=== PATIENT | female | born 1985 | race Caucasian/White ===

== ENCOUNTER → 2016-11-03 | Outpatient (CLI) | payer MEDICAID ==
[~2016-11-03] MED LIST: NONE PER PT
== END | disposition home or self-care (01) ==
LOC: CFH 11:55
PROVIDERS: ATTEND Nurse Practitioner
DX: E04.2 Nontoxic multinodular goiter (principal)
CPT/HCPCS: 76536

== ENCOUNTER → 2016-12-30 | Outpatient (CLI) | payer MEDICAID ==
[~2016-12-30] MED LIST changes: +PHEN15CA PO; +TRAN650T3 PO
[2016-12-30 10:19] LABS: ASPARTATE AMINO TRANSFERASE 12 U/L (15-37); BLOOD UREA NITROGEN 11 mg/dL (7-18)
== END | disposition home or self-care (01) ==
LOC: STAR 09:23
PROVIDERS: ATTEND Urology
DX: Z01.818 Encounter for other preprocedural examination (principal); R94.31 Abnormal electrocardiogram [ECG] [EKG]; N20.0 Calculus of kidney
CPT/HCPCS: 36415; 80053; 81001; 85025; 85610; 85730; 87086; 93005

== ENCOUNTER 2017-01-11 05:39 | Day surgery (SDC) | payer MEDICAID ==
[2016-12-30 08:30] VITALS: BP 130/83
[~2017-01-11] VITALS: Ht 172.7 cm; Wt 95.0 kg
[2017-01-11 06:09] LABS: HCG UR OBC PASS
[2017-01-11] MEDS ORDERED: LACTATED RINGERS 1,000 ML IV SCH (06:10)
[2017-01-11 06:12] VITALS: BP 130/83
[2017-01-11] MEDS ORDERED: LIDOCAINE 1%, 2ML SQ PRN (06:30)
[2017-01-11] MEDS ORDERED: MIDAZOLAM 1 MG/ML, 2ML ONE (07:06)
[2017-01-11] MEDS ORDERED: FENTANYL PF 250 MCG/5ML ONE (07:06)
[2017-01-11] MEDS ORDERED: ONDANSETRON 2MG/ML, 2ML ONE (07:51)
[2017-01-11] MEDS ORDERED: PROPOFOL 10 MG/ML, 20ML ONE (07:51)
[2017-01-11] MEDS ORDERED: DEXAMETHASONE 4 MG/ML, 1ML ONE (07:51)
[2017-01-11] MEDS ORDERED: CEFAZOLIN 1,000 MG ONE (07:51)
[2017-01-11] MEDS ORDERED: OMNIPAQUE 350 MG/ML, 50 ML BOTTLE IV ONE (08:15)
[2017-01-11] MEDS ORDERED: MIDAZOLAM 1 MG/ML, 2ML IV PRN (08:30)
[2017-01-11] MEDS ORDERED: PROMETHAZINE 25 MG/ML, 1ML IV PRN (08:30)
[2017-01-11] MEDS ORDERED: EPHEDRINE 50 MG/ML, 1ML IVPush PRN (08:30)
[2017-01-11] MEDS ORDERED: ONDANSETRON 2MG/ML, 2ML IVPush PRN (08:30)
[2017-01-11] MEDS ORDERED: hydrALAzine 20 MG/ML, 1ML IV PRN (08:30)
[2017-01-11] MEDS ORDERED: ACETAMINOPHEN 325 MG TABLET PO PRN (08:30)
[2017-01-11] MEDS ORDERED: METOPROLOL 1 MG/ML, 5ML IV PRN (08:30)
[2017-01-11] MEDS ORDERED: ALBUTEROL SULFATE 2.5 MG/3 ML NPPB PRN (08:30)
[2017-01-11] MEDS ORDERED: LABETALOL 5MG/ML, 20ML IV PRN (08:30)
[2017-01-11] MEDS ORDERED: MEPERIDINE/PF 25MG/0.5ML IVPush PRN (08:30)
[2017-01-11] MEDS ORDERED: OXYcodone 5 MG/5 ML ORAL.SOL UDC PO PRN (08:30)
[2017-01-11] MEDS ORDERED: ACETAMINOPHEN 650 MG/20.3 ML UDC ONE (10:20)
[2017-01-11] MEDS ORDERED: FENTANYL PF 100 MCG/2ML ONE (10:20)
[2017-01-11] MEDS ORDERED: OXYcodone 5 MG/5 ML ORAL.SOL UDC ONE (10:20)
[2017-01-11] MEDS: FENTANYL PF 100 MCG/2ML IV PRN ×2 (10:22→10:28)
[2017-01-11] MEDS ORDERED: HYDROmorphone 1 MG/ML, 1ML ONE (10:27)
[2017-01-11] MEDS: HYDROmorphone 1 MG/ML, 1ML IV PRN ×2 (10:33→10:48)
[2017-01-11] MEDS ORDERED: HYDROcodone/APAP 5/325 TABLET PO PRN (11:30)
[2017-01-11] MEDS ORDERED: KETOROLAC 30 MG/1 ML ONE (11:44)
[2017-01-11] MEDS ORDERED: KETOROLAC 30 MG/1 ML IVPush ONE (12:00)
[2017-01-11] MEDS ORDERED: HYDROmorphone 2 MG/ML, 1ML IVPush PRN (12:00)
[2017-01-11] MEDS ORDERED: ONDANSETRON ODT 4 MG ONE (12:16)
[2017-01-11] MEDS ORDERED: ONDANSETRON ODT 4 MG PO ONE (12:30)
[2017-01-11] MEDS ORDERED: ONDANSETRON 4 MG TABLET PO ONE (12:30)
== END 2017-01-11 12:35 ==
LOC: OUT 05:39
PROVIDERS: ATTEND Urology
DX: N20.0 Calculus of kidney (principal); D64.9 Anemia, unspecified; E78.5 Hyperlipidemia, unspecified; I10 Essential (primary) hypertension; F41.9 Anxiety disorder, unspecified; G43.909 Migraine, unspecified, not intractable, without status migrainosus; J45.909 Unspecified asthma, uncomplicated; Z90.49 Acquired absence of other specified parts of digestive tract
CPT/HCPCS: 50590; 81025; C1758; C1769; J0690; J1100; J1170; J1885; J2250; J2405; J2704; J3010; J3490; J7120; Q9967

== ENCOUNTER → 2017-02-10 | Outpatient (CLI) | payer MEDICAID ==
[~2017-02-10] MED LIST changes: +ALBUTEROL INH INH
== END ==
LOC: STAR 12:17
PROVIDERS: ATTEND Surgery
DX: Z02.9 Encounter for administrative examinations, unspecified (principal)

== ENCOUNTER 2017-02-16 11:31 | Day surgery (SDC) | payer MEDICAID ==
[~2017-02-16] VITALS: Ht 172.7 cm; Wt 95.8 kg
[~2017-02-16 11:31] MED LIST changes: +BUPIVACAINE/PF-EPI 0.5% 1:200K ONE
[2017-02-16] MEDS ORDERED: LACTATED RINGERS 1,000 ML IV SCH (11:56)
[2017-02-16 11:57] VITALS: BP 138/92
[2017-02-16] MEDS ORDERED: MIDAZOLAM 1 MG/ML, 2ML ONE (12:17)
[2017-02-16] MEDS ORDERED: FENTANYL PF 250 MCG/5ML ONE (12:17)
[2017-02-16 12:28] LABS: HCG UR OBC PASS
[2017-02-16] MEDS ORDERED: CEFAZOLIN 1,000 MG ONE (13:01)
[2017-02-16] MEDS ORDERED: PROPOFOL 10 MG/ML, 20ML ONE (13:01)
[2017-02-16] MEDS ORDERED: ONDANSETRON 2MG/ML, 2ML ONE (13:01)
[2017-02-16] MEDS ORDERED: DEXAMETHASONE 4 MG/ML, 1ML ONE (13:01)
[2017-02-16] MEDS ORDERED: ALBUTEROL/IPRATROPIUM 2.5MG/0.5MG, 3 ML NPPB PRN (13:30)
[2017-02-16] MEDS ORDERED: MEPERIDINE/PF 25MG/0.5ML IVPush PRN (13:30)
[2017-02-16] MEDS ORDERED: HYDROmorphone 1 MG/ML, 1ML IV PRN (13:30)
[2017-02-16] MEDS ORDERED: PROMETHAZINE 25 MG/ML, 1ML IV PRN (13:30)
[2017-02-16] MEDS ORDERED: LABETALOL 5MG/ML, 20ML IV PRN (13:30)
[2017-02-16] MEDS ORDERED: hydrALAzine 20 MG/ML, 1ML IV PRN (13:30)
[2017-02-16] MEDS ORDERED: MIDAZOLAM 1 MG/ML, 2ML IV PRN (13:30)
[2017-02-16] MEDS ORDERED: OXYcodone 5 MG/5 ML ORAL.SOL UDC PO PRN (13:30)
[2017-02-16] MEDS ORDERED: ONDANSETRON 2MG/ML, 2ML IVPush PRN (13:30)
[2017-02-16] MEDS ORDERED: ACETAMINOPHEN 325 MG TABLET PO PRN (13:30)
[2017-02-16] MEDS ORDERED: MEPERIDINE/PF 25MG/0.5ML ONE (14:05)
[2017-02-16] MEDS ORDERED: HYDROcodone/APAP 7.5-325MG/15ML UDC ONE (14:26)
[2017-02-16] MEDS ORDERED: FENTANYL PF 100 MCG/2ML ONE (14:26)
[2017-02-16] MEDS ORDERED: HYDROcodone/APAP 7.5-325MG/15ML UDC PO PRN (14:30)
[2017-02-16] MEDS: FENTANYL PF 100 MCG/2ML IV PRN ×2 (14:30→14:40)
== END 2017-02-16 16:20 ==
LOC: OUT 11:31
PROVIDERS: ATTEND Surgery
DX: N64.52 Nipple discharge (principal); N60.41 Mammary duct ectasia of right breast; K21.9 Gastro-esophageal reflux disease without esophagitis; J45.909 Unspecified asthma, uncomplicated; E66.9 Obesity, unspecified; Z68.32 Body mass index [BMI] 32.0-32.9, adult; Z91.041 Radiographic dye allergy status; Z91.013 Allergy to seafood
CPT/HCPCS: 19101; 81025; 88305; 88307; J0690; J1100; J2175; J2250; J2405; J2704; J3010; J7120; 88304

== ENCOUNTER → 2017-06-26 | Outpatient (CLI) | payer MEDICAID ==
[~2017-06-26] MED LIST changes: -BUPIVACAINE/PF-EPI 0.5% 1:200K ONE; -PHEN15CA PO; +PHEN15CA2 PO
== END | disposition home or self-care (01) ==
LOC: RAD 07:09
PROVIDERS: ATTEND Urology
DX: N20.0 Calculus of kidney (principal); Z90.49 Acquired absence of other specified parts of digestive tract
CPT/HCPCS: 74000

== ENCOUNTER → 2017-07-13 | Outpatient (CLI) | payer MEDICAID ==
[~2017-07-13] MED LIST changes: +ALBU8.5H8 INH; +METO25TA91 PO
== END ==
LOC: STAR 10:50
PROVIDERS: ATTEND Obstetrics & Gynecology Female Pelvic Medicine and Reconstructive Surgery
DX: Z02.9 Encounter for administrative examinations, unspecified (principal)

== ENCOUNTER 2017-07-24 05:23 | Observation (INO) | payer MEDICAID ==
[2017-07-13 11:15] VITALS: BP 117/80
[~2017-07-24] VITALS: Ht 172.7 cm; Wt 95.0 kg
[2017-07-24] MEDS ORDERED: LACTATED RINGERS 1,000 ML IV SCH (06:10)
[2017-07-24 06:21] LABS: HCG UR SG 1.015 (1.003-1.030)
[2017-07-24] MEDS ORDERED: LIDOCAINE 1%, 2ML SQ PRN (06:30)
[2017-07-24] MEDS ORDERED: MIDAZOLAM 1 MG/ML, 2ML ONE ×2 (06:43→10:08)
[2017-07-24] MEDS ORDERED: FENTANYL PF 250 MCG/5ML ONE (06:43)
[2017-07-24] MEDS ORDERED: PROPOFOL 10 MG/ML, 20ML ONE (06:43)
[2017-07-24] MEDS ORDERED: LIDOCAINE-MPF 2% ,5ML ONE (06:43)
[2017-07-24] MEDS ORDERED: ROCURONIUM 10 MG/ML,10ML ONE (06:44)
[2017-07-24] MEDS ORDERED: SODIUM CHLORIDE 0.9% PF 10ML ONE (06:46)
[2017-07-24] MEDS ORDERED: CEFAZOLIN 1,000 MG ONE ×2 (06:46)
[2017-07-24] MEDS ORDERED: EPINEPHRINE 1 MG/ML, 1ML ONE (06:50)
[2017-07-24] MEDS ORDERED: BUPIVACAINE/PF 0.25% ONE (06:50)
[2017-07-24] MEDS ORDERED: NEOMY/POLYMYXIN B GU IRR. 1 ML IRRIG ONE (06:51)
[2017-07-24] MEDS ORDERED: PROMETHAZINE 25 MG/ML, 1ML IV PRN (07:30)
[2017-07-24] MEDS ORDERED: OXYcodone 5 MG/5 ML ORAL.SOL UDC PO PRN (07:30)
[2017-07-24] MEDS ORDERED: LABETALOL 5MG/ML, 20ML IV PRN (07:30)
[2017-07-24] MEDS ORDERED: hydrALAzine 20 MG/ML, 1ML IV PRN (07:30)
[2017-07-24] MEDS ORDERED: ACETAMINOPHEN 325 MG TABLET PO PRN ×2 (07:30→18:30)
[2017-07-24] MEDS ORDERED: ONDANSETRON 2MG/ML, 2ML IVPush PRN (07:30)
[2017-07-24] MEDS ORDERED: DEXAMETHASONE 4 MG/ML, 1ML ONE ×3 (08:00)
[2017-07-24] MEDS ORDERED: ONDANSETRON 2MG/ML, 2ML ONE ×2 (08:00→09:57)
[2017-07-24] MEDS ORDERED: NEOSTIGMINE 1 MG/ML, 10ML ONE (08:44)
[2017-07-24] MEDS ORDERED: GLYCOPYRROLATE 0.4 MG/2 ML, 2ML ONE (08:44)
[2017-07-24] MEDS ORDERED: FENTANYL PF 100 MCG/2ML ONE ×2 (09:10→09:50)
[2017-07-24] MEDS ORDERED: OXYcodone 5 MG/5 ML ORAL.SOL UDC ONE (09:10)
[2017-07-24] MEDS ORDERED: HYDROmorphone 2 MG/ML, 1ML ONE ×2 (09:11→09:51)
[2017-07-24] MEDS: FENTANYL PF 100 MCG/2ML IV PRN ×4 (09:12→10:55)
[2017-07-24] MEDS: HYDROmorphone 1 MG/ML, 1ML IV PRN ×5 (09:25→09:45)
[2017-07-24] MEDS ORDERED: MEPERIDINE/PF 50 MG/ML ONE (09:57)
[2017-07-24] MEDS: MEPERIDINE/PF 25MG/0.5ML IVPush PRN ×2 (10:00→10:05)
[2017-07-24] MEDS ORDERED: MIDAZOLAM 1 MG/ML, 2ML IV PRN (10:30)
[2017-07-24] MEDS ORDERED: ACETAMINOPHEN 650 MG/20.3 ML UDC ONE (10:50)
[2017-07-24] MEDS ORDERED: IBUPROFEN 600 MG TABLET ONE (11:50)
[2017-07-24] MEDS: IBUPROFEN 600 MG TABLET PO SCH ×4 (11:51→22:07)
[2017-07-24] MEDS ORDERED: HYDROmorphone 2 MG/ML, 1ML IVPush PRN (12:00)
[2017-07-24] MEDS ORDERED: ZOLPIDEM 5MG TABLET PO PRN ×2 (12:00→21:00)
[2017-07-24] MEDS: HYDROcodone/APAP 7.5-325MG/15ML UDC PO PRN ×2 (14:23→16:51)
[2017-07-24 17:41] VITALS: BP 123/85
[2017-07-24] MEDS ORDERED: ACETAMINOPHEN 650 MG SUPP PR PRN (18:30)
[2017-07-24] MEDS ORDERED: ONDANSETRON 2MG/ML, 2ML IV PRN (18:30)
[2017-07-24] MEDS ORDERED: HYDROmorphone 2 MG/ML, 1ML IV PRN (18:30)
[2017-07-24] MEDS ORDERED: ALBUTEROL SULFATE 2.5MG/0.5ML NPPB PRN (18:30)
[2017-07-24 20:30] VITALS: BP 128/71
[2017-07-24] MEDS ORDERED: METOPROLOL SUCCINATE 25 MG TAB.ER.24H PO SCH (21:00)
[2017-07-24] MEDS ORDERED: FLURAZEPAM 15 MG CAPSULE PO PRN (21:00)
[2017-07-24] MEDS ORDERED: METOCLOPRAMIDE 5 MG/ML, 2ML IVPush PRN (22:00)
[2017-07-24] MEDS: DOCUSATE 100 MG CAPSULE PO SCH (22:06)
[2017-07-24] MEDS: SIMETHICONE 80 MG CHEW TAB PO SCH (22:06)
[2017-07-24] MEDS: OXYcodone/APAP 5/325MG TABLET PO PRN (22:07)
[2017-07-24 23:44] VITALS: BP 109/68
[2017-07-25] MEDS: OXYcodone/APAP 5/325MG TABLET PO PRN ×2 (03:53→09:17)
[2017-07-25 04:17] VITALS: BP 108/72
[2017-07-25] MEDS: IBUPROFEN 600 MG TABLET PO SCH ×3 (06:00→10:01)
[2017-07-25] MEDS ORDERED: METOPROLOL SUCCINATE 25 MG TAB.ER.24H PO SCH (06:00)
[2017-07-25 07:10] VITALS: BP 104/59
[2017-07-25] MEDS: SIMETHICONE 80 MG CHEW TAB PO SCH ×3 (07:41→10:01)
[2017-07-25] MEDS: DOCUSATE 100 MG CAPSULE PO SCH (09:17)
[2017-07-25 11:14] VITALS: BP 115/73
== END 2017-07-25 12:01 | disposition home or self-care (01) ==
LOC: OUT 05:23 → ORIP 16:23 → 4NOR 17:28 → DCLOUNGE 07-25 11:53
PROVIDERS: ADMIT Obstetrics & Gynecology Female Pelvic Medicine and Reconstructive Surgery; ATTEND Obstetrics & Gynecology Female Pelvic Medicine and Reconstructive Surgery
DX: N92.1 Excessive and frequent menstruation with irregular cycle (principal); N39.46 Mixed incontinence; N81.5 Vaginal enterocele; N81.11 Cystocele, midline; N81.6 Rectocele; N80.3 Endometriosis of pelvic peritoneum; N84.0 Polyp of corpus uteri; N94.6 Dysmenorrhea, unspecified; I10 Essential (primary) hypertension; J45.909 Unspecified asthma, uncomplicated; Z87.442 Personal history of urinary calculi
CPT/HCPCS: 57265; 57288; 58552; 70450; 81025; 88307; 96374; 96375; C1771; G0378; J0171; J0690; J1100; J1170; J2175; J2250; J2405; J2704; J2710; J2765; J3010; J3490; J7120

== ENCOUNTER → 2018-01-29 | Outpatient (CLI) | payer MEDICAID | END | disposition home or self-care (01) | LOC: RAD 17:37 | DX: R10.31 Right lower quadrant pain (principal); R10.2 Pelvic and perineal pain | CPT/HCPCS: 76857 ==

== ENCOUNTER 2019-02-05 13:50 | Outpatient (CLI) | payer MEDICAID | END 2019-02-05 23:59 | disposition home or self-care (01) | LOC: CVU 13:50 | PROVIDERS: ATTEND Internal Medicine Cardiovascular Disease | DX: G45.9 Transient cerebral ischemic attack, unspecified (principal); R60.9 Edema, unspecified; I10 Essential (primary) hypertension | CPT/HCPCS: 93306; 93880 ==

== ENCOUNTER → 2019-06-06 | Outpatient (CLI) | payer MEDICAID ==
[~2019-06-06] MED LIST changes: +OMNIPAQUE 350 MG/ML, 100ML BOTTLE ONE
[2019-06-06 16:13] LABS: CREATININE 0.83 mg/dL (0.55-1.02)
== END | disposition home or self-care (01) ==
LOC: RAD 15:41
PROVIDERS: ATTEND Family Medicine
DX: N20.0 Calculus of kidney (principal); R10.13 Epigastric pain; Z90.710 Acquired absence of both cervix and uterus; Z90.49 Acquired absence of other specified parts of digestive tract; Z91.013 Allergy to seafood; Z91.041 Radiographic dye allergy status; Z91.09 Other allergy status, other than to drugs and biological substances
CPT/HCPCS: 36415; 74177; 82565; Q9967